=== PATIENT | male | born 2000 | race Two or more races ===

== ENCOUNTER 2021-08-14 02:04 | Emergency (ER) | payer OTHER ==
[2021-08-14 02:31] VITALS: BP 146/80; PULSE 142; TEMP 98.5; BMI 25.3
== END 2021-08-14 03:36 | disposition left against medical advice (07) ==
LOC: JER 02:04
DX: F10.129 Alcohol abuse with intoxication, unspecified (principal)
CPT/HCPCS: 93005; 93010; 99284-25

== ENCOUNTER 2022-11-15 00:56 | Emergency (ER) | payer OTHER ==
[2022-11-15 01:19] VITALS: BP 110/62; PULSE 75; RESP 20; TEMP 98.1; BMI 29.2
== END 2022-11-15 02:46 | disposition home or self-care (01) ==
LOC: JER 00:56
DX: R20.8 Other disturbances of skin sensation (principal)
CPT/HCPCS: 99282-25

== ENCOUNTER 2023-02-02 09:07 | Emergency (ER) | payer OTHER ==
[2023-02-02 09:15] VITALS: BP 120/56; PULSE 65; RESP 18; TEMP 98.1; BMI 29.2
[2023-02-02] MEDS ORDERED: DIPHTH,PERTUSS(ACELL),TET 0.5 ML DISP.SYRIN IM ONE ×2 (10:19→10:23)
== END 2023-02-02 10:30 | disposition home or self-care (01) ==
LOC: JER 09:07 → JERFT 09:07
PROC: 3E0234Z Introduction of Serum, Toxoid and Vaccine into Muscle, Percutaneous Approach (ICD-10-PCS; principal; 2023-02-02)
DX: S61.211A Laceration without foreign body of left index finger without damage to nail, initial encounter (principal); W31.2XXA Contact with powered woodworking and forming machines, initial encounter
CPT/HCPCS: 90471; 90715; 99282-25

== ENCOUNTER 2023-09-18 01:28 | Emergency (ER) | payer OTHER ==
[2023-09-18 01:40] VITALS: BP 127/79; PULSE 70; RESP 20; TEMP 97.4; BMI 29.2
== END 2023-09-18 02:38 | disposition home or self-care (01) ==
LOC: JER 01:28
DX: S61.255A Open bite of left ring finger without damage to nail, initial encounter (principal); W59.21XA Bitten by turtle, initial encounter
CPT/HCPCS: 99283-25